=== PATIENT | female | born 2000 | race African-American/Black ===

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

== ENCOUNTER 2019-05-16 07:43 | Outpatient (CLI) | payer OTHER ==
[2019-05-16 17:40] LABS: BASOPHILS % (AUTO) 0.2 %; HGB - HEMOGLOBIN 13.2 g/dL (12.0-16.0); LYMPHOCYTES % (AUTO) 12.8 %; MEAN CORPUSCULAR HEMOGLOBIN 30.2 pg (27.0-31.0); MEAN CORPUSCULAR HGB CONC 33.2 g/dL (32.0-36.0); MEAN CORPUSCULAR VOLUME 91.1 fL (81.0-99.0); MEAN PLATELET VOLUME 9.9 fL (7.9-10.8); MONOCYTES % (AUTO) 16.2 %; NEUTROPHILS % (AUTO) 70.5 %; PLT - PLATELET COUNT 284 10^3/uL (130-450); RED BLOOD COUNT 4.37 10^6/uL (4.20-5.40); RED CELL DISTRIBUTION WIDTH 12.2 % (12.0-15.0); WHITE BLOOD COUNT 12.3 x10^3/uL (4.8-10.8)
[2019-05-16 17:53] LABS: ABNORMAL LYMPHS % (MANUAL) 0 %
[2019-05-16 20:36] LABS: BAND NEUTROPHILS % (MANUAL) 4 %; DIFFERENTIAL COMMENT MANUAL DIFFERENTIAL; LYMPHOCYTES # (MANUAL) 1.5 10^3/uL (1.5-3.5); LYMPHOCYTES % (MANUAL) 12 %; MONOCYTES # (MANUAL) 2.5 10^3/uL (0.0-1.0); PLATELET ESTIMATE, MANUAL NORMAL (130-450,000) (NORMAL); PLATELET MORPHOLOGY NORMAL APPEARANCE (NORMAL); RBC MORPHOLOGY (MULTIPLE) NORMAL APPEARANCE (NORMAL)
== END 2019-05-16 23:59 | disposition home or self-care (01) ==
LOC: LAB.R 07:43
PROVIDERS: ATTEND Family Medicine
DX: J39.0 Retropharyngeal and parapharyngeal abscess (principal); R50.9 Fever, unspecified
CPT/HCPCS: 85025; 86308

== ENCOUNTER 2019-05-16 15:50 | Outpatient (CLI) | payer OTHER | END 2019-05-16 23:59 | disposition home or self-care (01) | LOC: LAB.R 15:50 | PROVIDERS: ATTEND Family Medicine | DX: J39.0 Retropharyngeal and parapharyngeal abscess (principal) | CPT/HCPCS: 87070 ==

== ENCOUNTER 2019-05-16 17:10 | Outpatient (CLI) | payer OTHER ==
[2019-05-16] MEDS ORDERED: IOVERSOL 320 100 ML VIAL IVP ONE ×2 (17:44→17:45)
--- NOTE | 2019-05-16 18:38 | CT Report ---
Reason: RETROPHARYNGEAL ABSCESS Procedure Date: 05/16/2019 Accession Number: [id number] / [id number] Procedure: CT - SOFT TISSUE NECK W CPT Code: FULL RESULT: EXAM: CT SOFT TISSUE NECK WITH CONTRAST. EXAM DATE: 05/16/2019 05:44 PM. HISTORY: Retropharyngeal abscess. COMPARISONS: None. TECHNIQUE: Routine soft tissue neck CT protocol. Reconstructions: Coronal and sagittal. IV contrast: . In accordance with CT protocol optimization, one or more of the following dose reduction techniques were utilized for this exam: automated exposure control, adjustment of mA and/or KV based on patient size, or use of iterative reconstructive technique. FINDINGS: There is a small mucous retention cyst in the right sphenoid air cell. There is a moderate-sized mucous retention cyst in the right maxillary sinus. The remainder of the paranasal sinuses are normally aerated. The bilateral mastoid air cells are normally aerated. There is cerumen demonstrated in the left external auditory canal. The bilateral lung apices are clear. The imaged portions of the orbits are normal in appearance. Cerebral volume and ventricular size are normal. There is normal enhancement within the brain parenchyma. There is normal enhancement within the deep venous sinuses. The right and left parotid spaces enhance symmetrically. There is hypertrophy of the adenoids and the palatine tonsils. There is a somewhat striped-like appearance of the palatine tonsils. There is no evidence of palatine tonsil abscess or peritonsillar abscess. The extrinsic and the intrinsic muscles of the tongue exhibit symmetric densities. The retropharyngeal space exhibits normal fat densities. The bilateral submandibular glands exhibit symmetric size and enhancement. There is no significant adenopathy within the bilateral level IB negro chains. There is no significant adenopathy in the level IA negro chain. The extrinsic and the intrinsic muscles of the tongue exhibit symmetric densities. The preepiglottic space and paraglottic spaces exhibit normal fat densities. The aryepiglottic folds and pyriform sinuses are symmetric. The false and true cords are normal in appearance. The subglottic space is normal. The bilateral thyroid lobes enhance symmetrically. The cervical and thoracic esophagus within the provided field of view is unremarkable. There is increased attenuation within the superior mediastinum. This may reflect a mild degree of residual thymic tissue. There are multiple lymph nodes of the bilateral deep cervical and spinal accessory chains at the upper limits of normal in size by size criteria. IMPRESSION: 1. There is hypertrophy of the adenoids and the palatine tonsils. These exhibit a mild degree of increased enhancement. This appearance can be seen in cases of infectious mononucleosis versus early bacterial pharyngitis. Recommend correlation. There is no evidence of retropharyngeal abscess or palatine tonsil abscess or peritonsillar abscess. Recommend correlation. The above findings were discussed with the ordering physician Dr. Fontana by Dr. House at 6:45 PM on 05/16/2019.
== END 2019-05-16 17:11 | disposition home or self-care (01) ==
LOC: DI 17:10
PROVIDERS: ATTEND Family Medicine
DX: J39.0 Retropharyngeal and parapharyngeal abscess (principal); J35.3 Hypertrophy of tonsils with hypertrophy of adenoids
CPT/HCPCS: 70491; Q9967

== ENCOUNTER 2019-05-16 17:18 | Outpatient (CLI) | payer OTHER | END 2019-05-16 17:19 | disposition home or self-care (01) | LOC: LAB 17:18 | PROVIDERS: ATTEND Family Medicine | DX: J39.0 Retropharyngeal and parapharyngeal abscess (principal) ==

== ENCOUNTER 2019-10-21 07:47 | Outpatient (CLI) | payer MEDICAID, OTHER | END 2019-10-21 07:48 | disposition home or self-care (01) | LOC: DI 07:47 | PROVIDERS: ATTEND Physician Assistant | DX: R01.1 Cardiac murmur, unspecified (principal) | CPT/HCPCS: 93306 ==